=== PATIENT | male | born 1990 | race Caucasian/White ===

== ENCOUNTER → 2016-08-10 | Outpatient (CLI) | payer OTHER ==
[~2016-08-10] MED LIST: CIPRO PO; DOLOBID500 MG PO; DOXYCYCLINE PO; FLAGYL PO; ZOLOFT PO
--- NOTE | ~2016-08-10 | US115 ---
[facility] A Service of [facility] & [facility] RADIOLOGY TEXT RESULTS PATIENT: ML LADD LOCATION: [facility] : [birth year] UNIT #: [id number] AGE: [address]: CHRISTINE BALTAZAR APRN SEX: M ORDER DR: [id number] [facility] [address] [place], [place] [address] [id number] O MR#: [id number] Acc #: [id number] NAME: ML LADD : 1990 SEX: M STUDY DATE/TIME: 08/10/2016 13:29 UNIT: [facility] ROOM: STUDY DESCRIPTION: US Scrotum and Contents Attending Physician: Christine Baltazar Np Referring Physician: Christine Baltazar Np Ordering Physician: Bryce Desouza M.D. Primary Care Physician: Christine Baltazar Np MEDICAL IMAGING REPORT This report is preliminary unless electronic signature is present EXAM Testicular ultrasound with color flow Doppler 08/10/2016 HISTORY Palpable bilateral scrotal lumps for 2 years. No known trauma. Lumps are painful to touch. FINDINGS Elmore-scale images of the scrotum were obtained as well as Doppler waveform spectral analysis and color flow Doppler imaging. The right testicle measures 3.1 cm x 2.3 cm x 4.4 cm while the left testicle measures 3.2 cm x 2.5 cm x 4.4 cm. Both testes are homogeneous in echotexture and demonstrate no cystic or solid mass lesions. Color-flow Doppler images show normal blood flow to both testes. There is a 4 mm cyst or a spermatocele involving the head of the left epididymis and there is a 3 mm cyst or spermatocele involving the head of the right epididymis. Trace scrotal fluid is seen bilaterally. IMPRESSION Small subcentimeter bilateral epididymal cysts or spermatoceles. Trace scrotal fluid. Otherwise negative testicular ultrasound with color flow Doppler. Dictated by... Roberto Carlos Aranda M.D. THIS IS AN ELECTRONICALLY VERIFIED REPORT Roberto Carlos Aranda M.D. at 08/12/2016 2:25 PM KRT/bd TD: 08/11/2016 06:18 JOB #: [id number] [facility] A Service of [facility] & [facility] RADIOLOGY TEXT RESULTS PATIENT: ML LADD LOCATION: [facility] #: [id number] : [birth year] UNIT #: [id number] AGE: [address]: CHRISTINE BALTAZAR APRN SEX: M ORDER DR: MEDICAL IMAGING REPORT COPY
== END | disposition home or self-care (01) ==
LOC: CGUS 13:03
DX: N50.9 Disorder of male genital organs, unspecified (principal); R93.8 Abnormal findings on diagnostic imaging of other specified body structures
CPT/HCPCS: 76870; 93976